=== PATIENT | male | born 1970 | race Two or more races ===

== ENCOUNTER 2019-04-29 13:27 | Outpatient (CLI) | payer MEDICAID ==
[~2019-04-29] VITALS: Ht 175.3 cm; Wt 84.8 kg
[2019-04-29 15:59] VITALS: BP 100/74
--- NOTE | 2019-04-29 20:45 | Consultation ---
DATE OF CONSULTATION: 04/29/2019 CONSULTING PHYSICIAN: Newton Scott M.D. CHIEF COMPLAINT: Abdominal hematoma. HISTORY OF PRESENT ILLNESS: The patient is a 49-year-old male who was referred to us. Apparently, he had a hematoma about a year ago requiring admission to [facility]. He had EUS with [facility]. Apparently, initially we he refused. He had an angiogram, which showed evidence of hematoma. We could not find obvious leak. He had EUS. It was blood clot. He refused surgery and his hematoma is shrinking. He also had an endoscopy about a year ago at [facility]. He had H. pylori positive gastritis, which has been treated. Last treatment was about a month and half ago. PAST MEDICAL HISTORY: History of H. pylori gastritis. PAST SURGICAL HISTORY: None. MEDICATIONS: None. FAMILY HISTORY: No family history of GI malignancies. SOCIAL HISTORY: The patient denies any tobacco, alcohol, or drug abuse. ALLERGIES: No known allergies. REVIEW OF SYSTEMS: A 10-point review of systems was performed and pertinent positives in HPI. PHYSICAL EXAMINATION: GENERAL: This is a well-developed male, in no acute distress. VITAL SIGNS: Temperature 98.2, blood pressure 100/74, pulse is 64, respirations 20. HEENT: Normocephalic and atraumatic. Sclerae anicteric. NECK: Supple. No evidence of obvious lymphadenopathy. CARDIOVASCULAR: Regular rate and rhythm. Plus S1 and S2. No obvious murmur. LUNGS: Clear to auscultation bilaterally. ABDOMEN: Positive bowel sounds. Soft and nontender. No rebound. No guarding. No peritoneal sign. EXTREMITIES: No cyanosis. No clubbing. No edema. ASSESSMENT AND PLAN: Abdominal hematoma, which has relatively resolved. The patient is status post treatment for H. pylori. We will send the stool for H. pylori to confirm eradication. Meanwhile, the patient also complained of some hemorrhoidal pain. We will give him Anusol-HC. The patient was told to come back when he turns 50 for colonoscopy. Newton Scott M.D. DR: MARTINEZ JOB#: [id number] CC:
[2019-04-30] MEDS ORDERED: NO MEDICATION (12:31)
== END 2019-04-29 15:27 | disposition home or self-care (01) ==
LOC: PAN 13:27
DX: S30.1XXA Contusion of abdominal wall, initial encounter (principal)
CPT/HCPCS: G0463